=== PATIENT | male | born 1945 | race Caucasian/White ===

== ENCOUNTER → 2016-10-19 | Outpatient (REF) | payer MEDICARE, MEDICAID ==
[2016-10-19 16:02] LABS: BASO # 0.1 K/mm3 (0.0-0.2); BASO % 1.3 % (0.0-1.0); EOS # 0.1 K/mm3 (0.0-0.50); EOS % 1.6 % (0.0-3.0); LARGE UNSTAINED CELL # 0.1 K/mm3 (0.0-0.4); LARGE UNSTAINED CELL % 1.9 % (0.0-4.0); LYMPH # 2.5 K/mm3 (1.5-4.5); LYMPH % 31.5 % (24.0-44.0); MEAN CORPUSCULAR HEMOGLOBIN 31.5 pg (27.0-33.0); MEAN CORPUSCULAR HGB CONC 33.8 g/dl (32.0-36.5); MEAN CORPUSCULAR VOLUME 93.3 fl (80.0-96.0); MONO # 0.5 K/mm3 (0.0-0.8); MONO % 6.3 % (0.0-5.0); NEUTROPHILS # 4.3 K/mm3 (1.8-7.7); NEUTROPHILS % 57.3 % (36.0-66.0); PLATELET COUNT, AUTOMATED 177 k/mm3 (150-450); RED CELL DISTRIBUTION WIDTH 13.3 % (11.5-14.5); WHITE BLOOD COUNT 7.4 K/mm3 (4.0-10.0)
[2016-10-19 16:20] LABS: ALBUMIN 3.8 GM/DL (3.2-5.2); ALBUMIN/GLOBULIN RATIO 1.23 (1.00-1.93); BILIRUBIN,TOTAL 0.3 MG/DL (0.2-1.0); CALCIUM LEVEL 9.1 MG/DL (8.8-10.2); CREATININE FOR GFR 1.45 MG/DL (0.70-1.30); GLOMERULAR FILTRATION RATE 51.2 (>42); TOTAL PROTEIN 6.9 GM/DL (6.4-8.2)
== END | disposition home or self-care (01) ==
LOC: M LABDRAW1 15:29
PROVIDERS: ATTEND Orthopaedic Surgery
DX: M18.0 Bilateral primary osteoarthritis of first carpometacarpal joints (principal); Z79.899 Other long term (current) drug therapy

== ENCOUNTER → 2019-06-02 | Outpatient (CLI) | payer MEDICARE, MEDICAID ==
[~2019-06-02] MED LIST: ADV250INH INH; LIDOCAINE 1% MDV 20ML VIAL As Ordered ONE; LISI10TA4 PO; MIDAZOLAM INJ 2 MG/2 ML VIAL (J2250) As Ordered ONE; PROAAER10 INH; RANI1TAB38 PO; ROPI3TAB3 PO; ceFAZolin 1GM INJ (J0690 PER 500MG) As Ordered ONE; ceFAZolin 2 GM/D5W 50 ML IV BAG (J0690 PER 500MG) IV ONE; diphenhydrAMINE INJ 50MG/ML VIAL (J1200) As Ordered ONE; fentaNYL 100 MCG/2 ML INJECTION (J3010) As Ordered ONE
--- NOTE | 2019-06-02 09:50 | IRHP ---
[facility] IR Pre-Procedure H & P General Date of Service: Jun 02, 2019 Procedure: Same Day Surgery Interval History and Physical I have seen the patient and reviewed last H & P performed within 30 days. There is no significant interval change. Patient is stable for procedure not appropriate for procedure. History of Present Illness Chief Complaint The patient is a 74-year-old male admitted with a reason for visit of Bladder Ca. PRE-PROCEDURE DIAGNOSIS: bladder ca HEART: normal rate. LUNGS: normal breathing at rest. ASA Classification ASA Classification: II-Mild systemic disease Mallampati Score: I NPO: Yes Problems with prior sedation: No Obstructive Sleep Apnea: No Plan moderate sedation Allergies Coded Allergies: No Known Allergies (Unverified , 05/26/19) Home Medications Scheduled Lisinopril (Lisinopril), 10 MG PO DAILY, (Reported) Ranitidine Hcl (Ranitidine HCl), 150 MG PO BID, (Reported) Ropinirole HCl (Ropinirole HCl), 3 MG PO QPM, (Reported) Salmeterol/Fluticasone (Advair 250-50 Diskus), 1 PUFF INH BID, (Reported) Scheduled PRN Albuterol Sulfate (Proair Hfa), 2 PUFF INH Q4-6HP PRN for wheezing, (Reported) VS, I&O, 24H, Fishbone Laboratory Data 24H LABS Laboratory Tests 2 06/02/19 10:00: Lab Scanned Report LAB OTHER LEX MCALLISTER MD Jun 02, 2019 09:50
--- NOTE | 2019-06-02 11:24 | POST-OPPD ---
Postoperative Procedure Note Date Of Procedure: Jun 02, 2019 Time Of Procedure: 11:23 PREOPERATIVE DIAGNOSIS: bladder ca POSTOPERATIVE DIAGNOSIS: bladder ca FINDINGS: patent right IJ PROCEDURE: port SURGEON: zoya ANESTHESIA: moderate sedation ESTIMATED BLOOD LOSS: < 15 ml COMPLICATIONS: none POSTOPERATIVE CONDITION: stable LEX MCALLISTER MD Jun 02, 2019 11:24
[2019-06-02 14:25] VITALS: BP 148/76
--- NOTE | 2019-06-02 15:32 | REP ---
IR Ultrasound and fluoroscopy-guided port placement. IR Ultrasound of the neck. IR Moderate sedation. Clinical information: Bladder cancer. Physician: Dr. Guadalupe. Procedure: The patient was advised of the benefits, risks, and alternatives of the procedure and informed consent was obtained. A time-out was performed with verification of the patient's name, MRN, site of procedure and type of procedure to be performed. The patient was positioned in the supine position on the angiographic table. The site was prepped and draped in the usual sterile fashion. Moderate sedation was performed by the physician including the presence of an independent trained observer who assisted and monitored the patient's level of consciousness and physiologic status. Following the administration of fentanyl and Versed, the physician spent 45 minutes of continuous face to face time with the patient. Ultrasound of the neck reveals a patent and compressible right internal jugular vein. A tape cutting machine operator radiograph reveals no pertinent abnormality. The neck and anterior chest wall were anesthetized with lidocaine. The right internal jugular vein was accessed using a microintroducer needle by a lateral approach. An 018 wire was advanced into the superior vena cava, the needle was removed and a microsheath was placed. An Amplatz wire was then passed into the inferior vena cava. An incision at the internal jugular vein access site and anterior chest wall were made using a scalpel. An incision was made at the anterior chest wall. A small pocket was created using a combination of blunt and sharp dissection. A tunneling device was then used to pass the catheter from the pocket to the neck puncture site. An 8-[place] Angiodynamics Smart power port was then positioned in the pocket. The catheter was then measured and cut. The introducer sheath was exchanged for a peel-away sheath. The catheter was passed through the peel-away sheath into the internal jugular vein and the peel-away sheath was removed. The port tip was positioned at the cavoatrial junction. The port was then accessed with a Thompson needle. The port flushes and aspirates well. The puncture site in the neck was closed. The chest wall incision was then closed with 2-0 Vicryl and 4-0 Monocryl. Glue and Steri-Strips were applied. A sterile dressing was then applied. The patient tolerated the procedure well and was returned to the PRU in stable condition. Estimated blood loss: <5 ml. Complications: None. Conclusion: 1. Successful placement of an 8-[place] Angiodynamic Smart power port via the right internal jugular vein. The port is ready for immediate use. 2. Patient to follow up in IR clinic in 2 weeks. Thank you for this referral. Electronically Signed by Cyndi Guadalupe MD 06/02/2019 03:30 P
== END ==
LOC: M IRPRO 09:22
PROVIDERS: ATTEND Radiology Diagnostic Radiology
DX: C67.9 Malignant neoplasm of bladder, unspecified (principal)
CPT/HCPCS: 36563; 76937; 77001; 99152; 99153; C1769; C1788; C1894; J0690; J1200; J2250; J3010

== ENCOUNTER → 2019-07-13 | Outpatient (CLI) | payer MEDICARE, MEDICAID ==
[~2019-07-13] MED LIST changes: +AZIT500T5 PO; +GASTROGRAFIN SOLUTION 30ML (Q9963) As Ordered ONE; +ISOVUE-370 76% 100ML VIAL (Q9967) As Ordered ONE; -LIDOCAINE 1% MDV 20ML VIAL As Ordered ONE; -MIDAZOLAM INJ 2 MG/2 ML VIAL (J2250) As Ordered ONE; +OMEP-221 PO; +ONDA8TAB7 PO; +PRED10TA2 PO; -ceFAZolin 1GM INJ (J0690 PER 500MG) As Ordered ONE; -ceFAZolin 2 GM/D5W 50 ML IV BAG (J0690 PER 500MG) IV ONE; -diphenhydrAMINE INJ 50MG/ML VIAL (J1200) As Ordered ONE; -fentaNYL 100 MCG/2 ML INJECTION (J3010) As Ordered ONE
--- NOTE | 2019-07-13 10:32 | REP ---
CT of the abdomen pelvis without and with IV contrast and with bowel contrast for restaging of bladder carcinoma: There are no comparisons. After IV contrast dual stage imaging is performed, initially during the portal venous phase of enhancement and repeated through the abdomen, pelvis not included during the delayed equilibrium phase of enhancement. Within the visualized lower lung de jesus. There is a focal density at the inferior tip of the lingula, nonspecific in the absence of comparison studies. This could represent atelectasis, parenchymal scar or a lung nodule. Attention to this finding on follow up studies is recommended. The visualized lung de jesus are otherwise unremarkable. The hepatic parenchyma is homogeneous on all phases of the study. The gallbladder, pancreas and spleen are unremarkable. The adrenals are unremarkable. The kidneys are unremarkable. The abdominal aorta is unremarkable except for occasional calcified atheroma. There is no periaortic adenopathy or mass. The bowel and mesentery are unremarkable. Pelvis: The appendix is unremarkable. There is no bladder mass. No bladder calculi. No bladder wall thickening. The bladder is unremarkable. There is no pelvic adenopathy or ascites. The pelvic bowel loops are unremarkable. There are no lytic, blastic or destructive skeletal changes. There is degenerative disc disease throughout the lumbar spine. Impression: There is a focal density at the inferior tip of the left lung lingula, nonspecific, atelectasis, parenchymal scar versus lung nodule. Otherwise, negative CT study of the abdomen and pelvis. There is no intraperitoneal or retroperitoneal adenopathy or mass. The bladder wall is unremarkable. There is no hydronephrosis. Electronically Signed by Jono Lizarraga MD 07/13/2019 10:23 A
== END ==
LOC: M RAD 08:18
PROVIDERS: ATTEND Internal Medicine Hematology & Oncology
DX: C67.9 Malignant neoplasm of bladder, unspecified (principal); I70.0 Atherosclerosis of aorta; R91.8 Other nonspecific abnormal finding of lung field
CPT/HCPCS: 74178; Q9963; Q9967

== ENCOUNTER 2019-07-24 09:00 | Emergency (ER) | payer MEDICARE, MEDICAID ==
[~2019-07-24] VITALS: Ht 172.7 cm; Wt 85.0 kg
[~2019-07-24 09:00] MED LIST changes: -AZIT500T5 PO; -GASTROGRAFIN SOLUTION 30ML (Q9963) As Ordered ONE; -ISOVUE-370 76% 100ML VIAL (Q9967) As Ordered ONE; -PRED10TA2 PO
[2019-07-24] MEDS: IPRATROPIUM 0.5MG/ALBUTEROL 2.5MG INH SOL UD 3ML (DUONEB)(J7620) NEB PRN ×3 (09:27→10:24)
[2019-07-24 09:49] LABS: BASO # 0.1 10^3/uL (0.0-0.2); BASO % 0.9 % (0.0-1.0); HEMATOCRIT 32.5 % (42.0-52.0); LYMPH # 1.5 10^3/uL (1.5-5.0); LYMPH % 26.2 % (24.0-44.0); MEAN CORPUSCULAR HEMOGLOBIN 31.8 pg (27.0-33.0); MEAN CORPUSCULAR HGB CONC 33.8 g/dl (32.0-36.5); MEAN CORPUSCULAR VOLUME 93.9 fl (80.0-96.0); MONO % 17.8 % (0.0-5.0); PLATELET COUNT, AUTOMATED 293 10^3/uL (150-450); RED BLOOD COUNT 3.46 10^6/uL (4.30-6.10); WHITE BLOOD COUNT 5.8 10^3/uL (4.0-10.0)
[2019-07-24 10:09] LABS: CALCIUM LEVEL 8.9 MG/DL (8.8-10.2); CREATININE FOR GFR 1.26 MG/DL (0.70-1.30); GLOMERULAR FILTRATION RATE 59.7 (>42); POTASSIUM SERUM 4.7 MEQ/L (3.5-5.1)
--- NOTE | 2019-07-24 10:49 | REP ---
Two-view chest: Indication: Dyspnea. Findings: The hyperinflated lungs are clear. Right-sided Port-A-Cath is noted with the distal tip in the right atrium. There is no pleural effusion or pneumothorax. The cardiac silhouette is unremarkable. Impression: Clear lungs. Right-sided Port-A-Cath with the tip in the right atrium. Electronically Signed by Rk Rainey DO 07/24/2019 10:41 A
[2019-07-24 12:30] VITALS: BP 155/70
[2019-07-24] MEDS ORDERED: AZIT500T5 PO (12:34)
[2019-07-24] MEDS ORDERED: PRED10TA2 PO (12:34)
== END 2019-07-24 12:38 | disposition home or self-care (01) ==
LOC: M ED 09:00
DX: J44.1 Chronic obstructive pulmonary disease with (acute) exacerbation (principal); I10 Essential (primary) hypertension; K21.9 Gastro-esophageal reflux disease without esophagitis; C67.9 Malignant neoplasm of bladder, unspecified; Z95.9 Presence of cardiac and vascular implant and graft, unspecified; Z87.891 Personal history of nicotine dependence; Z82.49 Family history of ischemic heart disease and other diseases of the circulatory system; Z79.899 Other long term (current) drug therapy
CPT/HCPCS: 36591; 71046; 80053; 83605; 85025; 85027; 87040; 93041; 94640; 94760; 99285; G0463

== ENCOUNTER → 2019-10-11 | Outpatient (CLI) | payer MEDICARE, MEDICAID ==
[~2019-10-11] MED LIST changes: +AZIT500T5 PO; +CARB450I12 IV; +DEXA10VL IV; +EMEN150S IV; +ETOP20VI2 IV; +LEVO500T3 PO; +ONDA8TAB10 PO; -ONDA8TAB7 PO; +PEG6SYR SC; +PRED10TA2 PO; +RANI150T14 PO; +[UNRECOGNIZED DRUG - CODE] IV
--- NOTE | 2019-10-12 12:00 | REP ---
PET/CT: History: Restaging muscle invasive bladder cancer. Status post chemotherapy. Left posterior wall bladder lesion. Comparisons: Abdomen CT study July 13, 2019. TECHNIQUE: 51 minutes following the intravenous injection of a 8.68 mCi dose of F-18 FDG, three-dimensional PET scintigraphy is acquired from the skull base to the proximal thighs. Triplanar noncontrast CT scanning is acquired through the same anatomic range for attenuation correction, and image registration with scan parameters optimized to minimize radiation exposure to the patient. PET scintigraphy and CT datasets were fused and displayed on a workstation with multiplanar and projection display capability. PET/CT Findings: Head and neck soft tissues are unremarkable. There is no abnormal hypermetabolic uptake in the chest. There is a right-sided Sitpyn-B-Owcw catheter. No abnormal pulmonary parenchymal or mj uptake is seen above the diaphragms. In the abdomen and pelvis there is normal hepatic, gastrointestinal, splenic, and genitourinary distribution of fluorodeoxyglucose. There is no abnormal hypermetabolic uptake seen in the abdomen or pelvis. It should be noted that disease in the bladder wall disease would be unlikely to be visualized due to urinary excretion and increased activity in the urine within the bladder. There is no evidence of bulky mass in the urinary bladder wall on the accompanying CT. The prostate is somewhat enlarged. There is no evidence of hypermetabolic mj activity or extra vesicle disease. Impression: Negative PET scintigraphy. Electronically Signed by Ki Aparicio MD 10/12/2019 06:26 P
== END ==
LOC: M PLARAD 13:34
PROVIDERS: ATTEND Internal Medicine Hematology & Oncology
DX: C67.2 Malignant neoplasm of lateral wall of bladder (principal)
CPT/HCPCS: 78815; A9552

== ENCOUNTER → 2019-12-01 | Outpatient (CLI) | payer MEDICARE, MEDICAID ==
[~2019-12-01] MED LIST changes: +ISOVUE-370 76% 100ML VIAL (Q9967) As Ordered ONE
--- NOTE | 2019-12-01 15:14 | REP ---
CT of the chest with IV contrast: There are no comparisons. There are no lung masses or nodules. There is discoid atelectasis in the right middle lobe and in lingula. There are no infiltrates or pleural effusions. There is no mediastinal, hilar or axillary lymph node enlargement. The thoracic aorta is unremarkable. Cardiac size is normal. There is no pericardial effusion. There are no lytic, blastic or destructive skeletal changes. There is a right IJ central venous Pwfoqf-S-Owad with the tip in the superior vena cava. Impression: No evidence of adenopathy, pleural effusion, or metastatic disease. Discoid atelectasis in the middle lobe and lingula. Otherwise, negative CT study of the chest. Electronically Signed by Jono Lizarraga MD 12/01/2019 03:05 P
--- NOTE | 2019-12-01 15:21 | REP ---
CT of the abdomen pelvis multiphase imaging, initially without IV contrast, followed by immediate and delayed scanning after IV contrast: Comparison is 07/13/2019. There is a focal density inferiorly in the lingular segment of the left upper lobe, similar to the prior study, likely chronic atelectasis. The visualized lower lung de jesus are otherwise unremarkable. The hepatic parenchyma, gallbladder, pancreas and spleen are normal size, unremarkable and unchanged. The adrenals and kidneys are unremarkable and unchanged. The abdominal aorta is unremarkable except for occasional calcified atheroma. This is unchanged. There is no periaortic adenopathy or mass. The bowel and mesentery are unremarkable and unchanged. There is no adenopathy or ascites. Pelvis: The appendix and terminal ileum are unremarkable. There is no bladder wall thickening. The bladder is otherwise unremarkable. There is no pelvic adenopathy or ascites. The pelvic bowel loops are unremarkable. There are no lytic, blastic or destructive skeletal changes. Impression: Essentially negative CT study of the abdomen and pelvis. There is no adenopathy, ascites or metastatic disease. No bladder wall thickening. No hydronephrosis. No interval change. Electronically Signed by Jono Lizarraga MD 12/01/2019 03:13 P
== END ==
LOC: M RAD 13:59
PROVIDERS: ATTEND Urology
DX: C67.9 Malignant neoplasm of bladder, unspecified (principal)
CPT/HCPCS: 71260; 74178; 80048; Q9967

== ENCOUNTER → 2019-12-01 | Outpatient (CLI) | payer MEDICARE, MEDICAID ==
[~2019-12-01] MED LIST changes: -ISOVUE-370 76% 100ML VIAL (Q9967) As Ordered ONE
[2019-12-01 15:49] LABS: CALCIUM LEVEL 8.6 MG/DL (8.8-10.2); CREATININE FOR GFR 1.32 MG/DL (0.70-1.30); GLOMERULAR FILTRATION RATE 56.6 (>42); POTASSIUM SERUM 4.8 MEQ/L (3.5-5.1)
== END ==
LOC: M LAB 14:58
PROVIDERS: ATTEND Urology
DX: C67.9 Malignant neoplasm of bladder, unspecified (principal)

== ENCOUNTER → 2021-08-14 | Outpatient (CLI) | payer MEDICARE, MEDICAID ==
[~2021-08-14] MED LIST changes: +GASTROGRAFIN SOLUTION 30ML (Q9963) As Ordered ONE; +ISOVUE-370 76% 100ML VIAL As Ordered ONE; +LISI10TA22 PO; -LISI10TA4 PO; +[UNRECOGNIZED DRUG - CODE] IV; -[UNRECOGNIZED DRUG - CODE] IV
--- NOTE | 2021-08-14 12:09 | REP ---
INDICATION: BLADDER CANCER. COMPARISON: 12/01/2019 CT, 09/15/2019 CXR. TECHNIQUE: Bolus of 100 mL Isovue 370 scanning through the chest with coronal and sagittal reconstructions. FINDINGS: The lung de jesus are well inflated. There are no dominant masses, calcified pleural plaques, acute infiltrate or pleural effusion. There is some minor curvilinear fibrotic change in the inferior lingular segment of the left upper lobe at the anterior left lung base and in the medial segment of the right middle lobe unchanged. Some minor cylindrical bronchiectatic changes are noted. No definite pulmonary nodules. No calcified pleural plaques. The heart is not enlarged. There is no pericardial thickening or effusion. The aorta is without aneurysm or dissection. The main, right and left pulmonary arteries are without filling defects. No pathologic sized mediastinal, hilar, axillary or supraclavicular adenopathy seen. There is an indwelling port catheter via the right jugular route unchanged. Small amount of reflux into the lower esophagus is evident. Spine shows some marginal osteophytes without compression deformity or destructive lesions in the vertebral bodies or posterior elements. Sternum, manubrium, medial clavicles, shoulders and ribs were grossly unremarkable. There is no hepatosplenomegaly, focal lesion, biliary dilatation or ascites in the upper abdomen. Gallbladder shows 1 small calcification along the peripheral wall that may be adherent stone it is partially contracted. Pancreas, adrenal glands and the upper poles of kidneys were intact. Visualized bowel loops intact. IMPRESSION: 1. Stable CT chest with no CT evidence of thoracic metastatic disease. Mediastinum was unremarkable and without adenopathy, aneurysm or other acute finding. Limited views of the upper abdomen intact. Please see the CT abdomen exam this date for full report. Bones are also intact. <Electronically signed by Popeye High > 08/14/21 [id number]
--- NOTE | 2021-08-14 12:56 | REP ---
INDICATION: BLADDER CANER. COMPARISON: Multiple the latest 12/01/2019 TECHNIQUE: Standard helical technique after the intravenous administration of 100 cc Isovue 370. Oral bowel preparatory contrast was also administered prior to the exam. FINDINGS: The liver, gallbladder, spleen, pancreas, adrenal glands, and kidneys are again seen to be within normal limits. The abdominal aorta and para-aortic regions are within normal limits. Since the last exam the patient has undergone cystectomy with diverting ileostomy. The stoma in the right parasagittal mid abdomen is within normal limits. There is no evidence of a bowel obstruction. No adenopathy has developed. There is no free fluid or free air. Bone window technique throughout the examination shows the osseous structures to be stable and intact. IMPRESSION: There is no evidence of acute disease. Findings as described above. <Electronically signed by Jarrett Andrade > 08/14/21 [id number]
== END ==
LOC: M RAD 10:28
PROVIDERS: ATTEND Urology
DX: C67.8 Malignant neoplasm of overlapping sites of bladder (principal)
CPT/HCPCS: 71260; 74177; Q9963; Q9967

== ENCOUNTER → 2023-05-17 | Outpatient (CLI) | payer MEDICARE, MEDICAID ==
[~2023-05-17] MED LIST changes: -GASTROGRAFIN SOLUTION 30ML (Q9963) As Ordered ONE; -ISOVUE-370 76% 100ML VIAL As Ordered ONE; +LEVO1TAB39 PO; -LEVO500T3 PO; -OMEP-221 PO; +OMEP40CA5 PO; +ONDA-84 PO; -ONDA8TAB10 PO; +ROPI3TAB18 PO; -ROPI3TAB3 PO; +ROPI5TAB19 PO; +TREL1AER PO; +VALS40TA9 PO; +VENTAER INH
== END ==
LOC: M PLARAD 14:45
PROVIDERS: ATTEND Internal Medicine
DX: R91.1 Solitary pulmonary nodule (principal)
CPT/HCPCS: 78815; A9552

== ENCOUNTER → 2023-05-17 | Outpatient (CLI) | payer MEDICARE, MEDICAID ==
[~2023-05-17] MED LIST changes: -EMEN150S IV; +FOSA150V36 IV
== END ==
LOC: M CARPUL 12:49
DX: J44.9 Chronic obstructive pulmonary disease, unspecified (principal); R91.8 Other nonspecific abnormal finding of lung field
CPT/HCPCS: 78815; 94010; 94726; 94729; A9552

== ENCOUNTER → 2023-08-02 | Outpatient (CLI) | payer MEDICARE, MEDICAID | LOC: M RAD 13:14 | PROVIDERS: ATTEND Internal Medicine Pulmonary Disease | DX: R91.8 Other nonspecific abnormal finding of lung field (principal) ==

== ENCOUNTER → 2023-10-06 | Outpatient (CLI) | payer MEDICARE, MEDICAID | LOC: M PLAIMG 08:16 | PROVIDERS: ATTEND Internal Medicine Pulmonary Disease | DX: J44.9 Chronic obstructive pulmonary disease, unspecified (principal); R91.8 Other nonspecific abnormal finding of lung field ==

== ENCOUNTER → 2025-02-07 | Outpatient (CLI) | payer MEDICARE, MEDICAID ==
[~2025-02-07] MED LIST changes: -ADV250INH INH; +ADVA1AER9 INH
== END ==
LOC: M CARPUL 15:50
PROVIDERS: ATTEND Physician Assistant
DX: I27.81 Cor pulmonale (chronic) (principal)

== ENCOUNTER → 2025-04-09 | Outpatient (CLI) | payer MEDICARE, MEDICAID ==
[~2025-04-09] MED LIST changes: +AMLO1TAB24 PO; +ROSU40TA81 PO
== END ==
LOC: M ONCR 13:49
PROVIDERS: ATTEND General Practice
DX: R91.1 Solitary pulmonary nodule (principal); C67.9 Malignant neoplasm of bladder, unspecified; Z87.891 Personal history of nicotine dependence; Z90.79 Acquired absence of other genital organ(s); Z80.0 Family history of malignant neoplasm of digestive organs; Z79.51 Long term (current) use of inhaled steroids; Z79.899 Other long term (current) drug therapy

== ENCOUNTER → 2025-05-03 | Outpatient (RCR) | payer MEDICARE, MEDICAID | LOC: M ONCR 04-17 10:34 | PROVIDERS: ATTEND General Practice | DX: Z51.0 Encounter for antineoplastic radiation therapy (principal); C34.11 Malignant neoplasm of upper lobe, right bronchus or lung ==

== ENCOUNTER 2025-05-04 14:38 | Outpatient (RCR) | payer MEDICARE, MEDICAID | END 2025-06-03 | LOC: M ONCR 14:38 | PROVIDERS: ATTEND General Practice | DX: Z51.0 Encounter for antineoplastic radiation therapy (principal); C34.11 Malignant neoplasm of upper lobe, right bronchus or lung ==

== ENCOUNTER → 2025-07-27 | Outpatient (CLI) | payer MEDICARE, MEDICAID ==
[~2025-07-27] MED LIST changes: +ISOVUE-370 76% 100 ML VIAL As Ordered ONE
== END ==
LOC: M RAD 12:49
PROVIDERS: ATTEND General Practice
DX: C34.90 Malignant neoplasm of unspecified part of unspecified bronchus or lung (principal)
CPT/HCPCS: 71250; 82565; Q9967

== ENCOUNTER → 2025-08-03 | Outpatient (CLI) | payer MEDICARE, MEDICAID ==
[~2025-08-03] MED LIST changes: -ISOVUE-370 76% 100 ML VIAL As Ordered ONE
== END ==
LOC: M ONCR 09:00
PROVIDERS: ATTEND General Practice
DX: R91.8 Other nonspecific abnormal finding of lung field (principal); Z92.3 Personal history of irradiation; Z87.891 Personal history of nicotine dependence; Z79.51 Long term (current) use of inhaled steroids; Z79.899 Other long term (current) drug therapy

== ENCOUNTER 2025-09-08 19:50 | Inpatient (IN) | payer MEDICARE, MEDICAID ==
[~2025-09-08] VITALS: Ht 172.7 cm; Wt 73.1 kg
[~2025-09-08 19:50] MED LIST changes: +AMOX875T2 PO; +AZIT-12 PO; +PRED50TA57 PO
[2025-09-08] MEDS: IPRATROPIUM 0.5 MG/ALBUTEROL 2.5 MG INH SOL UD 3 ML NEB PRN (20:21)
[2025-09-08 20:42] LABS: ABG BASE EXCESS -2.6 (-2.0-2.0); ABG HCO3 22.5 MMOL/L (22.0-26.0); ABG O2 SATURATION 97.3 % (95.0-99.0); ABG PARTIAL PRESSURE CO2 40.1 mmHg (35.0-45.0); ABG PARTIAL PRESSURE O2 97.7 mmHg (75.0-100.0); ABG STANDARD HCO3 22.3 MMOL/L. (22.0-26.0); ABG TOTAL CO2 23.7 MMOL/L (23.0-31.0); ABG pH (ARTERIAL) 7.367 UNITS (7.350-7.450)
[2025-09-08 20:50] LABS: PLATELET COUNT, AUTOMATED 286 10^3/uL (150-450)
[2025-09-08 21:03] LABS: ALT/SGPT 46.0 U/L (7.0-40); AST/SGOT 88.0 U/L (<34); CALCIUM LEVEL 8.8 MG/DL (8.3-10.6); CARBON DIOXIDE LEVEL 26.0 MMOL/L (20-31); CHLORIDE LEVEL 109.0 MMOL/L (98-107); CREATININE FOR GFR 1.95 MG/DL (0.70-1.30); GLOMERULAR FILTRATION RATE 34.4 (>42); POTASSIUM SERUM 4.6 MMOL/L (3.5-5.1); SODIUM LEVEL 145.0 MMOL/L (136-145)
[2025-09-08 21:05] LABS: THYROXINE (T4) 5.2 UG/DL (4.5-10.9)
[2025-09-08 21:26] LABS: MONOCYTES 4 % (0-5); NEUTROPHILS 90 % (28-66)
[2025-09-08 21:28] LABS: LYMPHOCYTES 6 % (16-44); PLATELET ESTIMATE NORMAL (NORMAL)
[2025-09-08] MEDS: cefTRIAXone SOD 2 GM in DEXTROSE 5% (D5W) ADV/MINI-BAG 50 ML IV ONE (22:25)
[2025-09-08] MEDS: AZITHROMYCIN INJ 500 MG, VIAL MATE ADAPTER 1 EACH in D5W 250 ML IV ONE (23:17)
[2025-09-08] MEDS ORDERED: ACETAMINOPHEN 325 MG TAB PO PRN (23:20)
[2025-09-09] VITALS (10 sets, daily range): BP systolic 92–155; BP diastolic 51–93; TEMP 97.8–98.2; O2SAT 82–99
[2025-09-09] MEDS ORDERED: MAGN500T12 PO (01:42)
[2025-09-09] MEDS ORDERED: SERT50TA29 PO (01:47)
[2025-09-09] MEDS ORDERED: FLUT1BLS8 INH (01:47)
[2025-09-09] MEDS ORDERED: FURO20TA2 PO (01:48)
[2025-09-09] MEDS: UNRESOLVED CLARIFICATION ENTRY XX SCH (01:49)
[2025-09-09] MEDS ORDERED: HOME MED LIST COMPLETE! XX SCH (01:50)
[2025-09-09] MEDS ORDERED: OSELTAMIVIR PHOSPHATE 75 MG CAP PO ONE (02:11)
[2025-09-09] MEDS: IPRATROPIUM 0.5 MG/ALBUTEROL 2.5 MG INH SOL UD 3 ML NEB SCH ×3 (07:17→16:00)
[2025-09-09 07:41] LABS: PLATELET COUNT, AUTOMATED 271 10^3/uL (150-450)
[2025-09-09] MEDS: ADVAIR HFA 230/21 MCG INHALER INH SCH (08:00)
[2025-09-09 08:15] LABS: CALCIUM LEVEL 8.4 MG/DL (8.3-10.6); CARBON DIOXIDE LEVEL 26.0 MMOL/L (20-31); CHLORIDE LEVEL 108.0 MMOL/L (98-107); CREATININE FOR GFR 1.68 MG/DL (0.70-1.30); GLOMERULAR FILTRATION RATE 41.1 (>42); MAGNESIUM LEVEL 1.8 MG/DL (1.8-2.4); POTASSIUM SERUM 5.1 MMOL/L (3.5-5.1); SODIUM LEVEL 143.0 MMOL/L (136-145)
[2025-09-09] MEDS: OSELTAMIVIR PHOSPHATE 75 MG CAP PO ONE (09:25)
[2025-09-09] MEDS: SERTRALINE HCL 50 MG TAB PO SCH (09:25)
[2025-09-09] MEDS: OMEPRAZOLE 20MG CAP PO SCH (09:26)
[2025-09-09] MEDS: ENOXAPARIN 40 MG/0.4 ML SYRINGE (J1650 PER 10MG) SC SCH (09:26)
[2025-09-09] MEDS ORDERED: LEVALBUTEROL HFA 45 MCG/ACT 15 GM INHALER INH PRN (10:30)
[2025-09-09] MEDS ORDERED: LEVALBUTEROL 1.25 MG 0.5ML CONCENTRATE NEB INH PRN (10:30)
[2025-09-09] MEDS: LORazepam 0.5 MG TAB PO ONE (10:41)
[2025-09-09] MEDS: MIDAZOLAM INJ 2 MG/2 ML VIAL IV STA (10:41)
[2025-09-09] MEDS: FUROSEMIDE 40 MG/4 ML VIAL IV SCH (11:43)
[2025-09-09] MEDS ORDERED: COMBIVENT RESPIMAT 100-20 MCG INHALER 4 GM INH SCH (12:00)
[2025-09-09] MEDS ORDERED: IPRATROPIUM 0.5 MG/ALBUTEROL 2.5 MG INH SOL UD 3 ML NEB SCH (12:00)
[2025-09-09 12:33] LABS: ABG BASE EXCESS -3.4 (-2.0-2.0); ABG HCO3 22.3 MMOL/L (22.0-26.0); ABG O2 SATURATION 92.4 % (95.0-99.0); ABG PARTIAL PRESSURE CO2 42.4 mmHg (35.0-45.0); ABG PARTIAL PRESSURE O2 68.2 mmHg (75.0-100.0); ABG STANDARD HCO3 21.5 MMOL/L. (22.0-26.0); ABG TOTAL CO2 23.6 MMOL/L (23.0-31.0); ABG pH (ARTERIAL) 7.338 UNITS (7.350-7.450)
[2025-09-09] MEDS: MAG SULF 1GM/100ML (MAG RUN) 1 GM in IV 1 EA IV STA (12:41)
[2025-09-09] MEDS: BUDESONIDE 0.5 MG/2 ML INHALATION SUSPENSION NEB ONE (14:14)
[2025-09-09] MEDS: GLYCOPYRROLATE INJ 0.2 MG/ML 2 ML VIAL NEB ONE (14:15)
[2025-09-09] MEDS: dexmedeTOMidine 200 MCG in IV 1 EA IV SCH (14:38)
[2025-09-09 15:29] LABS: PHOSPHORUS LEVEL 4.2 MG/DL (2.4-5.1)
[2025-09-09] MEDS: BUDESONIDE 0.5 MG/2 ML INHALATION SUSPENSION NEB SCH (19:35)
[2025-09-09] MEDS: GLYCOPYRROLATE INJ 0.2 MG/ML 2 ML VIAL NEB SCH (19:36)
[2025-09-09 21:14] LABS: ABG BASE EXCESS -1.5 (-2.0-2.0); ABG HCO3 23.6 MMOL/L (22.0-26.0); ABG O2 SATURATION 98.5 % (95.0-99.0); ABG PARTIAL PRESSURE CO2 41.0 mmHg (35.0-45.0); ABG PARTIAL PRESSURE O2 137.3 mmHg (75.0-100.0); ABG STANDARD HCO3 23.3 MMOL/L. (22.0-26.0); ABG TOTAL CO2 24.9 MMOL/L (23.0-31.0); ABG pH (ARTERIAL) 7.378 UNITS (7.350-7.450)
[2025-09-09] MEDS: AZITHROMYCIN 250 MG TABLET PO SCH (21:18)
[2025-09-09] MEDS: OSELTAMIVIR PHOSPHATE 30MG CAPSULE PO SCH (21:18)
[2025-09-09] MEDS: cefTRIAXone SOD 1 GM in DEXTROSE 5% (D5W) ADV/MINI-BAG 50 ML IV SCH (21:19)
[2025-09-09] MEDS: ROSUVASTATIN 10 MG TAB PO SCH (21:19)
[2025-09-10] VITALS (77 sets, daily range): BP systolic 73–164; BP diastolic 39–86; TEMP 97.1–98.2; O2SAT 85–100
[2025-09-10] MEDS: IPRATROPIUM 0.5 MG/ALBUTEROL 2.5 MG INH SOL UD 3 ML NEB SCH (01:10)
[2025-09-10 05:10] LABS: BASO # 0.0 10^3/uL (0.0-0.2); BASO % 0.1 % (0.0-1.0); EOS # 0.0 10^3/uL (0.0-0.5); EOS % 0.0 % (0.0-3.0); LYMPH # 0.3 10^3/uL (1.5-5.0); LYMPH % 4.0 % (24.0-44.0); MONO # 0.4 10^3/uL (0.0-0.8); MONO % 5.4 % (2.0-8.0); NEUTROPHILS # 6.0 10^3/uL (1.5-8.5); NEUTROPHILS % 89.0 % (36.0-66.0); PLATELET COUNT, AUTOMATED 297 10^3/uL (150-450)
[2025-09-10 05:31] LABS: CALCIUM LEVEL 8.6 MG/DL (8.3-10.6); CARBON DIOXIDE LEVEL 27.0 MMOL/L (20-31); CHLORIDE LEVEL 107.0 MMOL/L (98-107); CREATININE FOR GFR 1.7 MG/DL (0.70-1.30); GLOMERULAR FILTRATION RATE 40.5 (>42); POTASSIUM SERUM 4.7 MMOL/L (3.5-5.1); SODIUM LEVEL 145.0 MMOL/L (136-145)
[2025-09-10] MEDS: AZITHROMYCIN INJ 500 MG, VIAL MATE ADAPTER 1 EACH in NS 250 ML IV SCH (09:31)
[2025-09-10] MEDS ORDERED: MIDAZOLAM 5 MG/ML 1 ML VIAL As Ordered ONE (10:35)
[2025-09-10] MEDS ORDERED: PROPOFOL 1,000 MG/100 ML VIAL As Ordered ONE (10:39)
[2025-09-10] MEDS: ROCURONIUM BROMIDE 50MG/5ML VIAL IV ONE (10:42)
[2025-09-10] MEDS ORDERED: NOREPINEPHRINE 4 MG IN D5W 250 ML IVBAG (16 MCG/ML) As Ordered ONE (10:42)
[2025-09-10] MEDS ORDERED: NOREPINEPHRINE 4MG IN D5 250ML 4 MG in IV 1 EA IV PRN (10:45)
[2025-09-10] MEDS: MIDAZOLAM 5 MG/ML 1 ML VIAL IV ONE (12:03)
[2025-09-10] MEDS: NOREPINEPHRINE 4MG IN D5 250ML 4 MG in IV 1 EA IV SCH (12:36)
[2025-09-10] MEDS: MIDAZOLAM INJ 2 MG/2 ML VIAL IV PRN (13:01)
[2025-09-10] MEDS: MIDAZOLAM 100MG/100ML-0.9%NACL 100 MG in IV 1 EA IV SCH (13:33)
[2025-09-10] MEDS: MIDAZOLAM INJ 2 MG/2 ML VIAL IV ONE (14:08)
[2025-09-10] MEDS: PANTOPRAZOLE 40MG VIAL IV SCH (14:58)
[2025-09-11] VITALS (59 sets, daily range): BP systolic 97–163; BP diastolic 55–79; TEMP 97.5–100; O2SAT 93–100
[2025-09-11 05:09] LABS: BASO # 0.0 10^3/uL (0.0-0.2); BASO % 0.1 % (0.0-1.0); EOS # 0.0 10^3/uL (0.0-0.5); EOS % 0.0 % (0.0-3.0); LYMPH # 0.2 10^3/uL (1.5-5.0); LYMPH % 1.8 % (24.0-44.0); MONO # 0.3 10^3/uL (0.0-0.8); MONO % 3.8 % (2.0-8.0); NEUTROPHILS # 8.2 10^3/uL (1.5-8.5); NEUTROPHILS % 93.2 % (36.0-66.0); PLATELET COUNT, AUTOMATED 373 10^3/uL (150-450)
[2025-09-11 05:29] LABS: CALCIUM LEVEL 8.1 MG/DL (8.3-10.6); CARBON DIOXIDE LEVEL 28.0 MMOL/L (20-31); CHLORIDE LEVEL 106.0 MMOL/L (98-107); CREATININE FOR GFR 2.0 MG/DL (0.70-1.30); GLOMERULAR FILTRATION RATE 33.3 (>42); MAGNESIUM LEVEL 2.3 MG/DL (1.8-2.4); PHOSPHORUS LEVEL 4.0 MG/DL (2.4-5.1); POTASSIUM SERUM 4.5 MMOL/L (3.5-5.1); SODIUM LEVEL 144.0 MMOL/L (136-145)
[2025-09-11] MEDS: LR 1,000 ML IV SCH (17:08)
[2025-09-11 23:22] LABS: VENOUS BASE EXCESS 0.3 (-2.0-2.0); VENOUS HCO3 23.9 MMOL/L (23.0-27.0); VENOUS O2 SATURATION 98.1 % (60.0-80.0); VENOUS PARTIAL PRESSURE CO2 35.2 mmHg (38.0-50.0); VENOUS PARTIAL PRESSURE O2 129.7 mmHg (30.0-50.0); VENOUS PH 7.450 UNITS (7.330-7.430); VENOUS STANDARD HCO3 24.8 MMOL/L; VENOUS TOTAL CO2 25.0 MMOL/L (24.0-28.0)
[2025-09-11 23:50] LABS: CK-MB VALUE MASS 8.3 NG/ML (<3.6)
[2025-09-11 23:52] LABS: CPK CREATINE PHOSPHOKINASE 837.0 U/L (46-171); MB/CK RELATIVE INDEX 0.99 (< OR =4)
[2025-09-12] VITALS (16 sets, daily range): BP systolic 128–176; BP diastolic 62–90; TEMP 97.2–97.7; O2SAT 94–99
[2025-09-12] MEDS: guaiFENesin SYRUP 200 MG/10 ML UDC PO PRN (01:03)
[2025-09-12 04:10] LABS: BASO # 0.0 10^3/uL (0.0-0.2); BASO % 0.1 % (0.0-1.0); EOS # 0.0 10^3/uL (0.0-0.5); EOS % 0.0 % (0.0-3.0); LYMPH # 0.2 10^3/uL (1.5-5.0); LYMPH % 2.4 % (24.0-44.0); MONO # 0.4 10^3/uL (0.0-0.8); MONO % 4.0 % (2.0-8.0); NEUTROPHILS # 8.2 10^3/uL (1.5-8.5); NEUTROPHILS % 92.6 % (36.0-66.0); PLATELET COUNT, AUTOMATED 307 10^3/uL (150-450)
[2025-09-12 04:32] LABS: CALCIUM LEVEL 8.4 MG/DL (8.3-10.6); CARBON DIOXIDE LEVEL 29.0 MMOL/L (20-31); CHLORIDE LEVEL 113.0 MMOL/L (98-107); CREATININE FOR GFR 1.58 MG/DL (0.70-1.30); GLOMERULAR FILTRATION RATE 44.2 (>42); POTASSIUM SERUM 4.6 MMOL/L (3.5-5.1); SODIUM LEVEL 151.0 MMOL/L (136-145)
[2025-09-12] MEDS ORDERED: hydrALAZINE 20 MG/ML 1 ML VIAL IV PRN (08:25)
[2025-09-12] MEDS: D5W 1,000 ML IV SCH (10:13)
[2025-09-12] MEDS: amLODIPine 5 MG TAB PO SCH (11:17)
[2025-09-13] VITALS (12 sets, daily range): BP systolic 124–154; BP diastolic 60–90; TEMP 97.1–98.4; O2SAT 84–95
[2025-09-13 06:03] LABS: BASO # 0.0 10^3/uL (0.0-0.2); BASO % 0.1 % (0.0-1.0); EOS # 0.0 10^3/uL (0.0-0.5); EOS % 0.0 % (0.0-3.0); LYMPH # 0.4 10^3/uL (1.5-5.0); LYMPH % 4.8 % (24.0-44.0); MONO # 0.4 10^3/uL (0.0-0.8); MONO % 4.2 % (2.0-8.0); NEUTROPHILS # 7.9 10^3/uL (1.5-8.5); NEUTROPHILS % 90.0 % (36.0-66.0); PLATELET COUNT, AUTOMATED 269 10^3/uL (150-450)
[2025-09-13 06:27] LABS: CALCIUM LEVEL 8.0 MG/DL (8.3-10.6); CARBON DIOXIDE LEVEL 28.0 MMOL/L (20-31); CHLORIDE LEVEL 103.0 MMOL/L (98-107); CREATININE FOR GFR 1.4 MG/DL (0.70-1.30); GLOMERULAR FILTRATION RATE 51.1 (>42); POTASSIUM SERUM 4.8 MMOL/L (3.5-5.1); SODIUM LEVEL 140.0 MMOL/L (136-145)
[2025-09-13] MEDS: predniSONE 20 MG TAB PO SCH (09:00)
[2025-09-13] MEDS: CEFPODOXIME PROXETIL 200 MG TABLET PO SCH (20:32)
[2025-09-14] VITALS (14 sets, daily range): BP systolic 122–163; BP diastolic 60–77; TEMP 97.3–97.8; O2SAT 90–96
[2025-09-14 05:23] LABS: BASO # 0.0 10^3/uL (0.0-0.2); BASO % 0.1 % (0.0-1.0); EOS # 0.0 10^3/uL (0.0-0.5); EOS % 0.3 % (0.0-3.0); LYMPH # 1.0 10^3/uL (1.5-5.0); LYMPH % 6.8 % (24.0-44.0); MONO # 0.6 10^3/uL (0.0-0.8); MONO % 4.3 % (2.0-8.0); NEUTROPHILS # 12.2 10^3/uL (1.5-8.5); NEUTROPHILS % 87.6 % (36.0-66.0); PLATELET COUNT, AUTOMATED 270 10^3/uL (150-450)
[2025-09-14 05:48] LABS: CALCIUM LEVEL 7.8 MG/DL (8.3-10.6); CARBON DIOXIDE LEVEL 27.0 MMOL/L (20-31); CHLORIDE LEVEL 105.0 MMOL/L (98-107); CREATININE FOR GFR 1.29 MG/DL (0.70-1.30); GLOMERULAR FILTRATION RATE 56.4 (>42); POTASSIUM SERUM 4.4 MMOL/L (3.5-5.1); SODIUM LEVEL 140.0 MMOL/L (136-145)
[2025-09-14] MEDS ORDERED: OSEL75CA2 PO (11:08)
[2025-09-14] MEDS ORDERED: PRED20TA PO (11:08)
[2025-09-14] MEDS ORDERED: CEFP200T PO (11:08)
[2025-09-14] MEDS: FLUZONE HIGH DOSE (65+) 0.5 ML SYRINGE (25-26) IM.IMMUN ONE (14:16)
[2025-09-15] VITALS (10 sets, daily range): BP systolic 137–154; BP diastolic 64–67; TEMP 97.7; O2SAT 91–96
[2025-09-15 05:05] LABS: BASO # 0.0 10^3/uL (0.0-0.2); BASO % 0.2 % (0.0-1.0); EOS # 0.0 10^3/uL (0.0-0.5); EOS % 0.3 % (0.0-3.0); LYMPH # 1.0 10^3/uL (1.5-5.0); LYMPH % 8.3 % (24.0-44.0); MONO # 0.6 10^3/uL (0.0-0.8); MONO % 4.9 % (2.0-8.0); NEUTROPHILS # 10.6 10^3/uL (1.5-8.5); NEUTROPHILS % 85.2 % (36.0-66.0); PLATELET COUNT, AUTOMATED 229 10^3/uL (150-450)
[2025-09-15 05:29] LABS: CALCIUM LEVEL 8.0 MG/DL (8.3-10.6); CARBON DIOXIDE LEVEL 27.0 MMOL/L (20-31); CHLORIDE LEVEL 104.0 MMOL/L (98-107); CREATININE FOR GFR 1.4 MG/DL (0.70-1.30); GLOMERULAR FILTRATION RATE 51.1 (>42); POTASSIUM SERUM 4.7 MMOL/L (3.5-5.1); SODIUM LEVEL 139.0 MMOL/L (136-145)
== END 2025-09-15 11:59 | disposition home or self-care (01) | DRG 208 ==
LOC: M ED 19:50 → M ED INP 23:38 → M MS5PR 09-09 05:32 → M ICU 09-09 13:37 → M PCU 09-14 06:25
PROVIDERS: ADMIT Student in an Organized Health Care Education/Training Program; ATTEND Student in an Organized Health Care Education/Training Program
PROC: 5A1945Z Respiratory Ventilation, 24-96 Consecutive Hours (ICD-10-PCS; principal; 2025-09-10)
PROC: 0BH17EZ Insertion of Endotracheal Airway into Trachea, Via Natural or Artificial Opening (ICD-10-PCS; 2025-09-10)
PROC: 0B9M8ZZ Drainage of Bilateral Lungs, Via Natural or Artificial Opening Endoscopic (ICD-10-PCS; 2025-09-10)
DX: J44.1 Chronic obstructive pulmonary disease with (acute) exacerbation (principal); J96.01 Acute respiratory failure with hypoxia; N17.9 Acute kidney failure, unspecified; C34.11 Malignant neoplasm of upper lobe, right bronchus or lung; E87.1 Hypo-osmolality and hyponatremia; I12.9 Hypertensive chronic kidney disease with stage 1 through stage 4 chronic kidney disease, or unspecified chronic kidney disease; G25.81 Restless legs syndrome; N18.30 Chronic kidney disease, stage 3 unspecified; F41.9 Anxiety disorder, unspecified; K21.9 Gastro-esophageal reflux disease without esophagitis; J44.0 Chronic obstructive pulmonary disease with (acute) lower respiratory infection; J10.1 Influenza due to other identified influenza virus with other respiratory manifestations; Z79.52 Long term (current) use of systemic steroids; Z79.899 Other long term (current) drug therapy; Z87.891 Personal history of nicotine dependence; Z85.51 Personal history of malignant neoplasm of bladder; Z93.6 Other artificial openings of urinary tract status; Z92.3 Personal history of irradiation; Z92.21 Personal history of antineoplastic chemotherapy